=== PATIENT | female | born 1990 | race Two or more races ===

== ENCOUNTER 2025-01-13 18:50 | Emergency (ER) | payer OTHER ==
[~2025-01-13] VITALS: Ht 152.4 cm; Wt 90.7 kg
[2025-01-13] MEDS ORDERED: KETOROLAC TROMETHAMINE 30 MG VIAL IM ONE (21:00)
[2025-01-13] MEDS ORDERED: KETOROLAC TROMETHAMINE 30 MG VIAL ONE (22:11)
[2025-01-13 23:04] LABS: COVID-19 AG NEGATIVE (NEGATIVE)
[2025-01-13] MEDS ORDERED: DICLOFENAC SODI50 MG PO (23:28)
[2025-01-13] MEDS ORDERED: AMOX-CLAV 875-1 EAC1 PO (23:28)
[2025-01-13] MEDS ORDERED: PEPCID AC20 MG PO (23:28)
[2025-01-13 23:56] LABS: BASO % 0.3 % (0.1-1.2); EOS # 0.33 (0.04-0.54); EOS % 3.0 % (0.7-7.0); LYMPH # 2.21 (1.18-3.74); LYMPH % 19.8 % (19.3-53.1); MEAN PLATELET VOLUME 9.90 fl (9.4-12.4); MONO # 0.78 (0.24-0.82); MONO % 7.0 % (4.7-12.5); NEUT # 7.80 (1.56-6.13); NEUT % 69.6 % (34.0-71.1); RED CELL DISTRIBUTION WIDTH 12.0 % (11.6-14.4)
== END 2025-01-14 00:04 ==
LOC: ER 18:51
PROVIDERS: General Practice
DX: S93.491A Sprain of other ligament of right ankle, initial encounter (principal); X50.9XXA Other and unspecified overexertion or strenuous movements or postures, initial encounter; Y93.89 Activity, other specified; Y92.89 Other specified places as the place of occurrence of the external cause; J00 Acute nasopharyngitis [common cold]; H92.02 Otalgia, left ear; Z20.822 Contact with and (suspected) exposure to COVID-19
CPT/HCPCS: 36415; 73610; 73630; 96372; 99283; J1885